=== PATIENT | female | born 1950 | race Caucasian/White ===

== ENCOUNTER 2019-10-18 07:44 | Outpatient (CLI) | payer OTHER ==
[~2019-10-18 07:44] MED LIST: AMLODIPINE BESYL5 MG; CRESTOR5 MG; TOPROL XL25 M1
== END 2019-10-18 07:59 | disposition home or self-care (01) ==
LOC: LAB 07:44
DX: E11.9 Type 2 diabetes mellitus without complications (principal); I11.9 Hypertensive heart disease without heart failure; E78.2 Mixed hyperlipidemia; I25.10 Atherosclerotic heart disease of native coronary artery without angina pectoris

== ENCOUNTER 2019-12-16 16:17 | Emergency (ER) | payer OTHER ==
[~2019-12-16] VITALS: Ht 172.7 cm; Wt 99.8 kg
== END 2019-12-16 20:19 | disposition home or self-care (01) ==
LOC: ER 16:17
DX: T78.49XA Other allergy, initial encounter (principal); R05 Cough; X58.XXXA Exposure to other specified factors, initial encounter

== ENCOUNTER 2020-06-30 14:20 | Emergency (ER) | payer OTHER ==
[~2020-06-30] VITALS: Ht 172.7 cm; Wt 93.9 kg
[2020-06-30] MEDS ORDERED: PANTOPRAZOLE SO40 MG PO (14:32)
[2020-06-30] MEDS ORDERED: IRBESARTAN150 MG PO (14:32)
[2020-06-30] MEDS ORDERED: LIVALO2 MG PO (14:33)
[2020-06-30] MEDS ORDERED: ORPHENADRINE C100 MG PO (19:09)
[2020-06-30] MEDS ORDERED: KETO10TA2 PO (19:09)
== END 2020-06-30 19:16 | disposition home or self-care (01) ==
LOC: ER 14:20
DX: M54.5 Low back pain (principal)

== ENCOUNTER → 2021-01-26 | Emergency (ER) | payer OTHER ==
[~2021-01-26] VITALS: Ht 172.7 cm; Wt 95.3 kg
[~2021-01-26] MED LIST changes: +CHILDREN'S ASPI81 MG; +IRBESARTAN150 MG PO; +KETO10TA2 PO; +LIVALO2 MG PO; +ORPHENADRINE C100 MG PO; +PANTOPRAZOLE SO40 MG PO
== END ==
LOC: ER 20:35 → EDSEX 20:35 → ER 20:55
DX: J01.90 Acute sinusitis, unspecified (principal); R04.0 Epistaxis; J31.0 Chronic rhinitis; Z03.818 Encounter for observation for suspected exposure to other biological agents ruled out